=== PATIENT | male | born 1990 | race African-American/Black ===

== ENCOUNTER 2017-10-08 11:26 | Emergency (ER) | payer MEDICAID, OTHER ==
[~2017-10-08] VITALS: Ht 180.3 cm; Wt 56.7 kg
--- NOTE | 2017-10-08 12:17 | Emergency Room Report ---
History of Present Illness General Chief Complaint: Back Pain-No Injury Source: Patient Present Illness HPI 26 YO male presents to the ED c/o /10 in severity pain across the low back x 4 days. pt. reports hx of back injury previously where he experienced similar symptoms a month ago. pt reports he was moving several heavy boxes prior to onset of exacerbation. Pt. denies appreciable trauma or fall. denies fevers, chills, hematuria, dysuria, recent spinal procedures or hx of cancers. Pt. reports that with certain positions he will experience a numbness/tingling shooting sensation down the leg, and has happened bilaterally. Denies Gross loss of sensation or gross motor movements of the extremities, incontinence of bowel or bladder. Denies CP, Palpitations, LOC, AMS, dizziness, Changes in Vision, weakness or a sudden severe headache. Allergies: Coded Allergies: No Known Allergies (Unverified , 10/08/17) Patient History Past Medical History: see triage record Past Surgical History: none Pertinent Family History: none Reviewed Nursing Documentation: PMH: Agreed Nursing Documentation-PMH Past Medical History: No History, Except For Review of Systems All Other Systems: negative except mentioned in HPI Physical Exam Vital Signs Date Time Temp Pulse Resp B/P (MAP) Pulse Ox O2 Delivery O2 Flow Rate FiO2 10/08/17 11:44 98.1 60 18 113/75 98 Room Air 98.1 Sp02 EP Interpretation: reviewed, normal General Appearance: no apparent distress, alert, GCS 15, non-toxic Head: normocephalic, atraumatic ENT: hearing grossly normal, normal voice Neck: full range of motion Respiratory: lungs clear, normal breath sounds, speaking full sentences Cardiovascular #1: regular rate, rhythm Gastrointestinal: non tender, soft Rectal: deferred Genitourinary: normal inspection, no CVA tenderness Musculoskeletal: back normal, gait/station normal, normal range of motion, tender - TTP to paraspinal mucsculature of the lumbosacral spine bilaterally, no midline spinous process ttp. no obvious deformity or step-offs. Neurologic: alert, oriented x3, responsive, motor strength/tone normal, sensory intact, normal gait, speech normal, grossly normal Psychiatric: judgement/insight normal Skin: normal color, no rash, warm/dry, well hydrated Medical Decision Making PA Attestation Dr. Holder is my supervising Physician whom patient management has been discussed with. Diagnostic Impression: Primary Impression: Lumbosacral pain Additional Impression: Sciatic nerve pain Qualified Codes: M54.31 - Sciatica, right side ER Course 26 YO male presents to the ED c/o 5/10 in severity pain across the low back x 4 days. pt. reports hx of back injury previously where he experienced similar symptoms a month ago. pt reports he was moving several heavy boxes prior to onset of exacerbation. Pt. denies appreciable trauma or fall. denies fevers, chills, hematuria, dysuria, recent spinal procedures or hx of cancers. Pt. reports that with certain positions he will experience a numbness/tingling shooting sensation down the leg, and has happened bilaterally. Denies Gross loss of sensation or gross motor movements of the extremities, incontinence of bowel or bladder. Denies CP, Palpitations, LOC, AMS, dizziness, Changes in Vision, weakness or a sudden severe headache. Ddx considered: epidural abscess, fracture, sprain/strain, meningitis, spinal chord injury, sciatica, cauda equina, Pyelonephritis, renal calculi just to name a few. Vital signs reviewed and are WNL during ED visit. Pt. is afebrile with no signs of infection No new symptoms, and denies recent trauma. No saddle anesthesia noted, Pt. denies incontinence Neurovascular is intact FROM for the most part, some exacerbation of pain at certain points. -Mild Tenderness to palpation to paraspinal muscles of the lower back with no midline tenderness. -Pt. describes pain today as moderate and radiates across the lower back. - No CVA tenderness ORDERS: none warranted at this time. INTERVENTIONS: -Lidoderm TP d/w pt. conservative treatment, and to follow up with a primary care provider. pt given a list of primary care clinics for follow up. d/w pt. to return to the ED with worsening or new symptoms. DISCHARGE: At this time pt. is stable for d/c to home. Will provide printed patient care instructions, and any necessary prescriptions. Care plan and follow up instructions have been discussed with the patient prior to discharge. Last Vital Signs Date Time Temp Pulse Resp B/P (MAP) Pulse Ox O2 Delivery O2 Flow Rate FiO2 10/08/17 11:44 98.1 60 18 113/75 98 Room Air 98.1 Disposition: HOME, SELF-CARE Condition: Stable Scripts Ibuprofen* (MOTRIN*) 600 Mg Tablet 600 MG ORAL THREE TIMES A DAY, #30 TAB 0 Refills Prov: Jina Rothman 10/08/17 Methocarbamol* (ROBAXIN*) 500 Mg Tablet 500 MG PO TID, #42 TAB 0 Refills Prov: Jina Rothman 10/08/17 Lidocaine (Lidoderm) 1 Each Adh..patch 1 PATCH TOPIC DAILY, #30 PATCH 0 Refills Patch(es) may remain in place for up to 12 hours in any 24-hour period. Prov: Jina Rothman 10/08/17 Patient Instructions: Sciatica, Back Pain, Adult Additional Instructions: Take medications as directed. Follow up with a Primary Care Provider in 3-5 days, even if your symptoms have resolved. --Please review list of primary care clinics, if you do not already have a primary care provider Return sooner to ED if new symptoms occur, or current symptoms become worse. Do not drink alcohol, drive, or operate heavy machinery while taking Muscle Relaxers/ Robaxin as this may cause drowsiness. - Please note that this Emergency Department Report was dictated using [employer] technology software, occasionally this can lead to erroneous entry secondary to interpretation by the dictation equipment. Jina Rothman Oct 08, 2017 12:17
[2017-10-08] MEDS ORDERED: ROBAXIN500 MG PO (12:19)
[2017-10-08] MEDS ORDERED: LIDODERM700 M1 TOPIC (12:19)
[2017-10-08] MEDS ORDERED: IBUPROFEN600 MG ORAL (12:19)
[2017-10-08 12:28] VITALS: BP 113/75
== END 2017-10-08 12:28 | disposition home or self-care (01) ==
LOC: EMR 12:20
DX: M54.31 Sciatica, right side (principal)
CPT/HCPCS: 99284